=== PATIENT | female | born 1970 | race Caucasian/White ===

== ENCOUNTER 2021-07-20 22:03 | Emergency (ER) | payer OTHER, BC ==
[~2021-07-20] VITALS: Ht 162.6 cm; Wt 88.5 kg
[2021-07-20] MEDS ORDERED: TYLENOL325 MG PO (22:14)
[2021-07-20] MEDS ORDERED: ROBAXIN100 MG/1 M (22:14)
[2021-07-20] MEDS ORDERED: DIAZEPAM5 MG PO (23:47)
[2021-07-20] MEDS ORDERED: MOBIC15 MG PO (23:47)
== END 2021-07-21 00:02 | disposition home or self-care (01) ==
LOC: ED 22:03
DX: S16.1XXA Strain of muscle, fascia and tendon at neck level, initial encounter (principal); S39.012A Strain of muscle, fascia and tendon of lower back, initial encounter; Z88.0 Allergy status to penicillin; Z91.018 Allergy to other foods; Z88.8 Allergy status to other drugs, medicaments and biological substances; Z79.899 Other long term (current) drug therapy; V49.50XA Passenger injured in collision with unspecified motor vehicles in traffic accident, initial encounter
CPT/HCPCS: 72100; 72125; 96372; 99284-25; J1885; J3360